=== PATIENT | male | born 1940 | race American Indian/Alaskan Native ===

== ENCOUNTER 2016-10-14 10:56 | Emergency (ER) | payer MEDICARE, OTHER ==
--- NOTE | 2016-10-14 11:30 | EDM.PDOC ---
ED HPI GENERAL MEDICAL PROBLEM - General Chief Complaint: Upper Extremity Injury/Pain Stated Complaint: Right shoulder pain Time Seen by Provider: 10/14/16 11:15 Source of Information: Reports: Patient, RN Notes Reviewed History Limitations: Reports: No Limitations - History of Present Illness INITIAL COMMENTS - FREE TEXT/NARRATIVE: 76 year old male presents to the ED with 1 week history of worsening right shoulder pain that has progressively worsened over the past two days. The pain is to the anterior aspect of the shoulder and is worse with movement. The pain is described as sharp. He also has aching in his deltoid region which keeps him up at night. He denies numbness, tingling, or weakness. No fever or chills. No injury to the shoulder. No falls. No neck injury or neck pain. He has a history of left rotator cuff surgery and says this feels very similar. No chest pain, shortness of breath, or abdominal pain. Right Shoulder Pain Score (Numeric/FACES): 10 - Related Data Allergies Allergy/AdvReac Type Severity Reaction Status Date / Time aspirin Allergy Hives Verified 10/14/16 11:03 Penicillins Allergy Hives Verified 10/14/16 11:03 Home Meds: Home Meds Clopidogrel [Plavix] 75 mg PO DAILY 06/17/16 [History] Dutasteride [Avodart] 0.5 mg PO DAILY 06/17/16 [History] Enalapril [Vasotec] 5 mg PO DAILY 06/17/16 [History] Loratadine [Allergy Relief] 10 mg PO ASDIRECTED 06/17/16 [History] Metoprolol Succinate 25 mg PO DAILY 06/17/16 [History] Nitroglycerin [Nitrostat] 0.4 mg SL ASDIRECTED PRN 06/17/16 [History] Enderlin-3S/DHA/Epa/Fish Oil/D3 [Enderlin-3 + D Softgel] 1,000 mg PO DAILY 06/17/16 [ History] Omeprazole Magnesium [Prilosec Otc] 20 mg PO DAILY 06/17/16 [History] Simvastatin [Zocor] 0 mg PO BEDTIME 06/17/16 [History] Tamsulosin [Flomax] 0.4 mg PO DAILY 06/17/16 [History] Acetaminophen/HYDROcodone [Conroe 325-5 MG] 1 tab PO Q6H PRN #15 tablet 10/14/16 [Rx] Past Medical History HEENT History: Reports: Hard of Hearing, Impaired Vision Cardiovascular History: Reports: Afib, High Cholesterol, Hypertension Other Cardiovascular History: pt is onn plavix and does not know why-denies any cardiac stents Respiratory History: Reports: Sleep Apnea Other Respiratory History: has c-pap at home Gastrointestinal History: Reports: GERD Genitourinary History: Reports: BPH Musculoskeletal History: Reports: Back Pain, Chronic - Past Surgical History HEENT Surgical History: Reports: Other (See Below) Other HEENT Surgeries/Procedures: ear surgury Cardiovascular Surgical History: Reports: None GI Surgical History: Reports: Cholecystectomy, Colonoscopy Musculoskeletal Surgical History: Reports: Other (See Below) Other Musculoskeletal Surgeries/Procedures:: surgery to neck Social & Family History - Family History Family Medical History: Noncontributory - Tobacco Use Smoking Status *Q: Former Smoker Years of Tobacco use: 15 Packs/Tins Daily: 0.5 Used Tobacco, but Quit: Yes Month Tobacco Last Used: 40 years ago - Caffeine Use Caffeine Use: Reports: None - Recreational Drug Use Recreational Drug Use: No Review of Systems - Review of Systems Review Of Systems: See Below Constitutional: Reports: No Symptoms. Denies: Chills, Fever Respiratory: Reports: No Symptoms. Denies: Shortness of Breath Cardiovascular: Reports: No Symptoms. Denies: Chest Pain GI/Abdominal: Reports: No Symptoms. Denies: Abdominal Pain Musculoskeletal: Reports: Shoulder Pain. Denies: Neck Pain Skin: Reports: No Symptoms. Denies: Erythema, Wound Neurological: Reports: No Symptoms. Denies: Numbness, Tingling, Weakness ED EXAM, GENERAL - Physical Exam Exam: See Below Exam Limited By: No Limitations General Appearance: Alert, No Apparent Distress, Obese Neck: Normal Inspection, Supple, Non-Tender, Full Range of Motion. No: Tender Midline Respiratory/Chest: No Respiratory Distress, Lungs Clear, Normal Breath Sounds Cardiovascular: Regular Rate, Rhythm Back Exam: Normal Inspection. No: Vertebral Tenderness Extremities: Other (Normal inspection of right shoulder. There is tenderness over the anterior aspect of the shoulder with palpation of the acromioclavicular joint space. He has full but guarded ROM of the shoulder and has to use his other arm to assist with raising the arm. Negative impingment sign. There is pain with abduction of the arm laterally. CMS is intact distally. ) Neurological: Alert, Normal Cognition, No Motor/Sensory Deficits Skin Exam: Warm, Dry, Intact Course - Vital Signs Last Recorded V/S: Last Vital Signs Temp 97.3 F 10/14/16 11:03 Pulse 61 10/14/16 11:03 Resp 18 10/14/16 11:03 BP 143/83 H 10/14/16 11:03 Pulse Ox 96 10/14/16 11:03 - Orders/Labs/Meds Orders: Active Orders 24 hr Category Date Time Status Shoulder Comp Rt [CR] Stat Exams 10/14/16 11:21 Taken - Re-Assessments/Exams Free Text/Narrative Re-Assessment/Exam: Right shoulder x-ray reveals chronic, arthritis changes. Joint space is preserved. No AC joint separation. No fractures. The patient's symptoms are likely related to arthritis and possibly rotator cuff etiology which will need to be further evaluated as an outpatient. Will refer to Dr. Santana for further management. Prescription provided for Con[place]. Discharge instructions as documented. Departure - Departure Time of Disposition: 12:12 Disposition: Home, Self-Care 01 Condition: good Clinical Impression: Right shoulder pain Qualifiers: Chronicity: unspecified Qualified Code(s): M25.511 - Pain in right shoulder - Discharge Information Prescriptions: Acetaminophen/HYDROcodone [Con[place] 325-5 MG] 1 tab PO Q6H PRN #15 tablet PRN Reason: Pain Referrals: PCP,Not In Area [Primary Care Provider] - Forms: ED Department Discharge Additional Instructions: Naproxyn (aleve) 1 tab twice a day, take with breakfast and supper Tylenol 650mg every 4-6 hours as needed for mild to moderate pain throughout the day Con[place] 1 tab every 6 hours as needed for more severe pain and at bedtime to help with sleep Follow-up with Dr. Santana for further evaluation and management. Tomorrow, call [phone] to schedule an appointment. - My Orders Last 24 Hours: My Active Orders 10/14/16 11:21 Shoulder Comp Rt [CR] Stat - Assessment/Plan Last 24 Hours: My Active Orders 10/14/16 11:21 Shoulder Comp Rt [CR] Stat
[2016-10-14 12:24] VITALS: BP 120/73
--- NOTE | 2016-10-15 09:06 | CR ---
Right shoulder: Three views of the right shoulder were obtained. Comparison: No previous study. Joint space within the acromioclavicular joint is narrowed. Mild inferior spurring is seen. Small calcification is noted superior to the acromioclavicular joint which is incidental. Glenohumeral joint shows minimal spurring. No fracture or other bony abnormality is seen. Previous cervical spine surgery is noted. Impression: 1. Mild degenerative change within the right shoulder. Other incidental findings. Diagnostic code #2
== END 2016-10-14 12:20 | disposition home or self-care (01) ==
LOC: JD.ED 10:56
DX: M25.511 Pain in right shoulder (principal); I48.91 Unspecified atrial fibrillation; E78.00 Pure hypercholesterolemia, unspecified; I10 Essential (primary) hypertension; K21.9 Gastro-esophageal reflux disease without esophagitis; Z90.49 Acquired absence of other specified parts of digestive tract; Z98.890 Other specified postprocedural states; Z87.891 Personal history of nicotine dependence; Z79.02 Long term (current) use of antithrombotics/antiplatelets; Z79.899 Other long term (current) drug therapy; Z88.0 Allergy status to penicillin; Z88.8 Allergy status to other drugs, medicaments and biological substances
CPT/HCPCS: 73030-26-RT; 73030-RT; 99283

== ENCOUNTER 2023-12-08 18:08 | Emergency (ER) | payer MEDICARE, OTHER ==
[2023-12-08 19:02] LABS: BASOPHILS PERCENT AUTO 0.5 % (0.0-1.0); EOSINOPHILS ABSOLUTE AUTO 0.1 K/mm3 (0.0-0.4); EOSINOPHILS PERCENT AUTO 1.7 % (0.0-6.0); HEMATOCRIT 43.4 % (42.0-52.0); HEMOGLOBIN 14.6 gm/dl (14.0-18.0); IMMATURE GRAN ABSOLUTE AUTO 0.02 K/mm3 (0.00-0.05); IMMATURE GRAN PERCENT AUTO 0.2 % (0.0-0.4); LYMPHOCYTES ABSOLUTE AUTO 1.3 K/mm3 (1.0-4.8); MEAN CORPUSCULAR HEMOGLOBIN 29.3 pg (28.0-32.0); MEAN CORPUSCULAR HGB CONC 33.6 g/dl (32.0-36.0); MEAN PLATELET VOLUME 8.5 fl (9.4-12.4); MONOCYTES ABSOLUTE AUTO 0.3 K/mm3 (0.0-0.8); NEUTROPHILS ABSOLUTE AUTO 6.6 K/mm3 (1.8-7.7); NEUTROPHILS PERCENT AUTO 78.6 % (41.0-71.0); PLATELET COUNT,PLT 243 K/mm3 (150-400); RED BLOOD CELL COUNT 4.99 M/mm3 (4.52-5.90); WHITE BLOOD CELL COUNT,WBC 8.33 K/mm3 (3.9-11.3)
[2023-12-08 19:35] LABS: A/G RATIO 0.8 (1-2); ALBUMIN 3.7 g/dl (3.4-5.0); BILIRUBIN TOTAL 0.3 mg/dL (0.2-1.0); BUN/CREATININE RATIO 12.9 (14-18); CREATININE 1.4 mg/dL (0.7-1.3); EST CRCL DRUG DOSING (CG) 41.38 mL/min; PROTEIN TOTAL,TP 8.2 g/dl (6.4-8.2); TSH 1.254 uIU/mL (0.358-3.74)
[2023-12-08 20:11] LABS: APPEARANCE,URINE CLEAR (Clear); BILIRUBIN,URINE NEGATIVE (Negative); COLOR,URINE LIGHT YELLOW (Yellow); GLUCOSE,URINE NEGATIVE (Negative); KETONES,URINE NEGATIVE (Negative); LEUKOCYTE ESTERASE,URINE NEGATIVE (Negative); NITRITE,URINE NEGATIVE (Negative); OCCULT BLOOD,URINE NEGATIVE (Negative); PROTEIN,URINE NEGATIVE (Negative); UROBILINOGEN,URINE 0.2 (0.2-1.0)
[2023-12-08 20:19] VITALS: BP 144/88; PULSE 75
== END 2023-12-08 20:23 | disposition home or self-care (01) ==
LOC: JD.ED 18:08
DX: R00.2 Palpitations (principal); I12.9 Hypertensive chronic kidney disease with stage 1 through stage 4 chronic kidney disease, or unspecified chronic kidney disease; N18.31 Chronic kidney disease, stage 3a; E78.00 Pure hypercholesterolemia, unspecified; I48.91 Unspecified atrial fibrillation; K21.9 Gastro-esophageal reflux disease without esophagitis; Z79.02 Long term (current) use of antithrombotics/antiplatelets; Z79.899 Other long term (current) drug therapy; Z88.5 Allergy status to narcotic agent; Z88.0 Allergy status to penicillin
CPT/HCPCS: 36415; 71046; 71046-26; 80053; 81003; 83735; 83880; 84443; 84484; 85025; 85379; 93005; 93010; 99282; 99285